=== PATIENT | female | born 2000 | race Two or more races ===

== ENCOUNTER 2022-07-31 13:47 | Emergency (ER) | payer OTHER ==
[~2022-07-31] VITALS: Ht 182.9 cm; Wt 53.0 kg
[2022-07-31 14:46] VITALS: BP 107/72
[2022-07-31] MEDS: diphenhdrAMINE HCL 50 MG/1 ML VL IV ONE ×2 (20:21→20:26)
== END 2022-07-31 20:55 | disposition home or self-care (01) ==
LOC: ER 13:47
DX: O02.0 Blighted ovum and nonhydatidiform mole (principal); Z3A.00 Weeks of gestation of pregnancy not specified
CPT/HCPCS: 36415; 76801; 76817; 84702; 99284; J1200

== ENCOUNTER 2022-08-14 10:14 | Emergency (ER) | payer OTHER ==
[~2022-08-14] VITALS: Ht 162.6 cm; Wt 60.3 kg
[2022-08-14 11:48] VITALS: BP 133/52
== END 2022-08-14 12:24 | disposition left against medical advice (07) ==
LOC: ER 10:14
DX: R05.9 Cough, unspecified (principal); R50.9 Fever, unspecified; Z53.21 Procedure and treatment not carried out due to patient leaving prior to being seen by health care provider